=== PATIENT | female | born 1940 | race Caucasian/White ===

== ENCOUNTER 2020-06-03 11:45 | Emergency (ER) | payer MEDICARE ==
[~2020-06-03] VITALS: Ht 152.4 cm; Wt 64.7 kg
[2020-06-03 12:46] LABS: BASOPHILS % (AUTO) 0.9 % (0-1); EOSINOPHILS # (AUTO) 0.7 X10'3 (0-0.9); EOSINOPHILS % (AUTO) 11.4 % (0-6); HEMATOCRIT 40.9 % (35.0-45.0); HEMOGLOBIN 13.8 g/dl (12.0-16.0); LYMPHOCYTES # (AUTO) 1.7 X10'3 (1.1-4.8); LYMPHOCYTES % (AUTO) 29.4 % (21-51); MEAN CORPUSCULAR HEMOGLOBIN 30.8 PG (27.0-31.0); MEAN CORPUSCULAR HGB CONC 33.7 g/dL (33.0-36.5); MEAN CORPUSCULAR VOLUME 91.4 FL (78-98); MONOCYTES # (AUTO) 0.5 X10'3 (0-0.9); MONOCYTES % (AUTO) 8.8 % (2-12); NEUTROPHILS # (AUTO) 2.9 X10'3 (1.8-7.7); NEUTROPHILS % (AUTO) 49.5 % (42-75); PLATELET COUNT 284 X10'3 (140-440); RED BLOOD COUNT 4.47 X10'6 (4.20-5.60); RED CELL DISTRIBUTION WIDTH 15.1 % (11.5-14.5); WHITE BLOOD COUNT 5.8 X10'3 (4.5-11.0)
[2020-06-03 13:04] LABS: ALANINE AMINOTRANSFERASE 29 U/L (12-78); ALBUMIN 3.5 G/DL (3.4-5.0); ALKALINE PHOSPHATASE 56 IU/L (46-116); ANION GAP 7 (8-16); ASPARTATE AMINO TRANSFERASE 21 U/L (10-37); BLOOD UREA NITROGEN 17 MG/DL (7-18); BUN/CREATININE RATIO 20.5 (6.6-38.0); CHLORIDE 106 MMOL/L (99-107); CREATININE 0.83 MG/DL (0.40-0.90); GLUCOSE 109 MG/DL (70-104); SODIUM 142 MMOL/L (135-145); TOTAL CARBON DIOXIDE 28.8 MMOL/L (24-32); eGFR 67 ML/MIN
[2020-06-03 13:18] LABS: C-REACTIVE PROTEIN 0.21 MG/DL (0.0-0.5); CREATINE KINASE 38 U/L (26-192); LIPASE 112 U/L (73-393); TROPONIN I < 0.04 NG/ML (0.0-0.05)
[2020-06-03] MEDS ORDERED: iohexol 300mg/ml 100ml inj. ONE (13:58)
[2020-06-03] MEDS ORDERED: valacyclovir 500mg tablet PO SCH (14:00)
[2020-06-03] MEDS ORDERED: NAPR-56 PO (14:05)
[2020-06-03] MEDS ORDERED: VALA100031 PO (14:05)
[2020-06-03] MEDS ORDERED: ketorolac tromethamine 15mg/ml inj. IV ONE (14:10)
[2020-06-03 14:46] VITALS: BP 165/80
== END 2020-06-03 14:53 | disposition home or self-care (01) ==
LOC: ER 11:46
DX: B02.9 Zoster without complications (principal); R10.12 Left upper quadrant pain
CPT/HCPCS: 36415; 80053; 82550; 83690; 84484; 85025; 86140; 93005; 96374; 99284; J1885; Q9967